=== PATIENT | male | born 1965 | race Caucasian/White ===

== ENCOUNTER 2021-04-28 19:48 | Emergency (ER) | payer OTHER, SELFPAY ==
--- NOTE | ~2021-04-28 | XR_ITS ---
EXAMINATION: XR elbow LT min 3V EXAM DATE: 04/28/2021 20:31 INDICATION: Fall, left elbow swelling and pain posteriorly. TECHNIQUE: Left elbow frontal, lateral with flexion, and oblique projections obtained and reviewed. There is no prior study for comparison. FINDINGS: Left elbow anterior humeral line intact. No elbow joint effusion. There are no acute fra ctures or dislocations identified. There is no subcutaneous gas. There is soft tissue swelling over the elbow posteriorly. There are no radiopaque foreign bodies. IMPRESSION: 1. XR elbow LT min 3V exam without acute osseous findings. 2. Soft tissue swelling. Reviewed, dictated and finalized at location G.
[2021-04-28 20:10] VITALS: BP 171/84; PULSE 85; RESP 14; TEMP 36.8; O2SAT 100
[2021-04-28 20:30] LABS: Basophils Percent Auto 0.4 % (0.2-1.2); Eosinophils Absolute Auto 0.4 K/mm3 (0-0.3); Eosinophils Percent Auto 4.1 % (0-4.4); Hematocrit 37.9 % (42.0-52.0); Hemoglobin 13.5 g/dL (14.0-18.0); Immature Granulocyte Absolute 0.02 K/mm3 (0.00-0.031); Immature Granulocyte Percent A 0.2 % (0-0.5); Lymphocytes Absolute Auto 1.96 K/mm3 (0.9-3.2); Mean Corpuscular HGB Conc 35.6 g/dl (32-36); Mean Corpuscular Hemoglobin 31.2 pg (26-34); Mean Corpuscular Volume 87.5 fl (80-100); Mean Platelet Volume 9.5 fl (7.4-10.4); Monocytes Absolute Auto 0.6 K/mm3 (0.1-0.6); Monocytes Percent Auto 7.3 % (2.6-8.5); Neutrophils Absolute Auto 5.5 K/mm3 (1.3-6.7); Platelet Count Result 271 k/mm3 (150-375); Red Blood Count 4.33 M/mm3 (4.6-6.20); Red Cell Distribution Width 12.3 % (11.5-14.5); White Blood Count 8.5 K/mm3 (4.5-10.0)
[2021-04-28 20:59] LABS: Alanine Aminotransferase 17 U/L (4-50); Albumin Level 4.1 g/dL (3.5-5.1); Alkaline Phosphatase 128 U/L (38-126); Anion Gap 8 mmol/L (8-16); Aspartate Amino Transferase 27 U/L (17-59); Bilirubin,Total 0.5 mg/dL (0.2-1.3); Blood Urea Nitrogen 24 mg/dL (9-20); Calcium 9.3 mg/dL (8.4-10.2); Carbon Dioxide 26 mmol/L (22-30); Chloride 102 mmol/L (98-107); Estimated CRCL calculation 75 ml/min; Estimated Glomerular Filt Rate > 60; Glucose 191 mg/dL (75-110); Potassium 4.7 mmol/L (3.4-5.0); Sodium 136 mmol/L (137-145)
[2021-04-28 22:04] VITALS: BP 181/90; PULSE 86; TEMP 37; O2SAT 100
[2021-04-29 00:41] VITALS: BP 165/83; PULSE 87; RESP 16; TEMP 36.5; O2SAT 100
--- NOTE | 2021-04-29 01:15 | ED.FALL ---
HPI - Fall General Chief Complaint: Fall Stated Complaint: swollen elbow Time Seen by Provider: 04/29/21 01:06 Source: patient, RN notes reviewed and old records reviewed Mode of arrival: ambulatory Limitations: no limitations History of Present Illness HPI Narrative: Patient is 55 years old white male presents with pain, and redness at the back of left elbow started about 1-1/2-day ago. Patient had a ground fall 1 week ago slipped and fell landed on the back of left elbow, had 1 cm laceration at that time. Patient was able to manage to clean it and use topical antibiotic. 1 and half days ago the area started getting swelling, red, tender and warm. Patient denies any fever, chills, nausea, vomiting. Patient is diabetic Related Data Home Medications Medication Instructions Recorded Confirmed insulin detemir U-100 [Levemir unit SUBCUT 04/29/21 FlexTouch U-100 Insuln] insulin lispro unit SUBCUT 04/29/21 metformin mg PO 04/29/21 Allergies Allergy/AdvReac Type Severity Reaction Status Date / Time No Known Allergies Allergy Unknown Verified 04/29/21 00:44 Review of Systems Review of Systems: Narrative: CONSTITUTIONAL: Denies fever, chills, or sweats. EYES: Denies visual changes, redness, or discharge. ENT: Denies rhinorrhea, congestion, sore throat, or otalgia. CARDIOVASCULAR: Denies chest pain, palpitations, or edema. RESPIRATORY: Denies cough or dyspnea. GASTROINTESTINAL: Denies abdominal pain, nausea, vomiting, or diarrhea. GENITOURINARY: Denies dysuria or hematuria. SKIN: Denies rash or itching. MUSCULOSKELETAL: Denies back pain, joint pain, or myalgia. NEUROLOGIC: Denies headache, numbness, or weakness. PSYCHIATRIC: Denies anxiety or depression. [facility] Social History Social History Smoking status: Former smoker Smoking end date: 10/25/01 Alcohol intake: current Gender identity (if verbalized by the patient): Male Exam Narrative: Exam Narrative: General appearance: Well-developed, well-nourished Skin: Normal color left upper extremity exam showed 1 cm healed laceration at the back of left elbow, surrounded by erythema, warm, diffusely tender, no discharge. Head: Normocephalic, nontraumatic Chest and respiratory: Airway patent, no respiratory distress, no accessory muscle use Heart: Regular rate/rhythm Abdomen: Soft, nontender, no organomegaly, quiet bowel sounds Vascular: Normal peripheral pulses, normal capillary refill. Musculoskeletal: Normal range of motion, nontender back Neurologic: Alert and oriented ?3, [employer] is normal as tested, no gross motor deficit Course Course Emergency Course: Stable Vital Signs Vital signs: Vital Signs Temperature 36.8 C 04/28/21 20:10 Pulse Rate 85 04/28/21 20:10 Respiratory Rate 14 04/28/21 20:10 Blood Pressure 171/84 H 04/28/21 20:10 Pulse Oximetry 100 04/28/21 20:10 Temperature 36.5 C 04/29/21 00:41 Pulse Rate 87 04/29/21 00:41 Respiratory Rate 16 04/29/21 00:41 Blood Pressure 165/83 H 04/29/21 00:41 Pulse Oximetry 100 04/29/21 00:41 MDM - Fall MDM Narrative Medical decision making narrative: Cellulitis secondary to laceration is my concern. Labs, x-ray left elbow, IV vancomycin, further plan to follow Differential Diagnosis Differential diagnosis: Likely other (Cellulitis, hyperglycemia, hypertension) Lab Data Result diagrams: 04/28/21 20:23 04/28/21 20:23 Labs: Lab Results 04/28/21 04/28/21 Range/Units 20:23 20:23 WBC 8.5 (4.5-10.0) K/mm3 RBC 4.33 L (4.6-6.20) M/mm3 Hgb 13.5 L (14.0-18.0) g/dL Hct 37.9 L (42.0-52.0) % MCV 87.5
[2021-04-29 03:10] VITALS: BP 160/80; PULSE 86; O2SAT 100
== END 2021-04-29 03:09 | disposition home or self-care (01) ==
LOC: ANHED 04-29 01:27
PROVIDERS: Emergency Medicine; Emergency Provider Emergency Medicine; PCP Family Medicine Adolescent Medicine
DX: L03.114 Cellulitis of left upper limb (principal); Z87.891 Personal history of nicotine dependence
CPT/HCPCS: 36415; 73080; 80053; 85025; 96365; 99284; J3370

== ENCOUNTER 2023-03-02 15:27 | Outpatient (CLI) | payer OTHER, SELFPAY ==
--- NOTE | ~2023-03-02 | US_ITS ---
US renal BI 03/02/2023 16:47 Procedure: Realtime transabdominal ultrasound of the kidneys and bladder. Indication: Proteinuria Comparison: No prior studies for comparison. Findings: Renal echotexture is normal bilaterally without hydronephrosis, contour deforming mass or r enal calculus. There are cysts of the left kidney. There is indeterminate exophytic left renal lesion measuring 2.6 cm. The right kidney measures 13.1 cm and left kidney measures 12.3 cm. Bladder withi n normal limits. Impression: 1: Indeterminate left renal mass measuring 2.[address] or MRI with and without contra st recommended. Reviewed, dictated and finalized at location L. Impression: 1: Indeterminate left renal mass measuring 2.[address] or MRI w ith and without contrast recommended.
== END 2023-03-02 15:28 | disposition home or self-care (01) ==
PROVIDERS: PCP Family Medicine Adolescent Medicine; Visit Provider Internal Medicine Nephrology
DX: R80.9 Proteinuria, unspecified (principal); E11.9 Type 2 diabetes mellitus without complications
CPT/HCPCS: 76775

== ENCOUNTER 2023-04-19 14:15 | Outpatient (CLI) | payer OTHER, SELFPAY ==
--- NOTE | ~2023-04-19 | CT_ITS ---
EXAMINATION: CT abdomen pelvis wo/w con DATE: 04/19/2023 14:43 INDICATION: Left kidney mass TECHNIQUE: Computed tomography (CT) of the abdomen was performed without intravenous contrast. CT of the abdomen and pelvis was then performed with a total of 100 mL Omnipaque 350 intravenous contrast. The dose-length product (DLP) was 1122.46 mGy-cm. Automated exposure control and iterative reconstruc tion technique were employed. COMPARISON: 12/15/2010 FINDINGS: Minimal dependent atelectasis is present in the lung bases. The heart size is normal. The l iver, spleen, pancreas, gallbladder, and adrenal glands are normal. There are multiple nonenhancing s oft tissue density lesions of the left kidney, consistent with proteinaceous cysts, which measure up to 2.3 cm. There is a 6 mm cyst of the right kidney. No pathologically enlarged abdominal or pelvic l ymph nodes are identified. No free intraperitoneal gas or evidence of bowel obstruction. The appendix is normal. There is calcified atherosclerosis of the aorta and many of the other arteries. IMPRESSION: 1. Nonenhancing left kidney masses, consistent with proteinaceous cysts. Reviewed, dictated and finalized at location []
[2023-04-19 14:34] LABS: Estimated Glomerular Filt Rate > 60
== END 2023-04-19 14:16 | disposition home or self-care (01) ==
PROVIDERS: PCP Family Medicine Adolescent Medicine; Visit Provider Internal Medicine Nephrology
DX: N28.89 Other specified disorders of kidney and ureter (principal)
CPT/HCPCS: 74178; Q9967

== ENCOUNTER 2023-08-27 01:03 | Day surgery (SDC) | payer OTHER, SELFPAY ==
[2023-08-16 15:11] VITALS: BMI 28.1
--- NOTE | 2023-08-26 13:41 | WPDANESEPPF ---
Anes - Initial Pre Proc Eval Procedure: Operation Date: 08/27/23 10:30 Proposed Procedures p Screening Colonoscopy - Yoseph Snyder MD Date/Time: 08/26/23 13:41 Surgeon: Yoseph Snyder MD Pre Op Diagnosis: neoplasm screening Patient Data Age: 57 Gender: M Height: 1.75 m Weight: 86.5 kg Allergies Allergy/AdvReac Type Severity Reaction Status Date / Time No Known Allergies Allergy Unknown Verified 08/27/23 09:19 Home Medications Medication Instructions Recorded Confirmed Type pen needle, diabetic 31 gauge x #300 ea 01/14/22 08/16/23 Rx 3/16 (BD Ultra-Fine Mini Pen Needle) insulin lispro 100 unit/mL 6 unit (0.06 mL) subcut .Before 12/07/22 08/16/23 Rx subcutaneous pen each meal #6 mL metformin 500 mg tablet,extended See Rx Instructions .Route 12/07/22 08/16/23 Rx release 24 hr .COMPLEX #360 tabs insulin detemir U-100 100 unit/mL 20 unit subcut QHS 01/08/23 08/16/23 History (3 mL) subcutaneous pen (Levemir FlexPen) blood sugar diagnostic (OneTouch #100 ea 02/08/23 08/16/23 Rx Verio test strips) lisinopril 5 mg tablet 5 mg PO DAILY #90 tabs 08/09/23 08/16/23 Rx Patient hx anesthesia problems: none Family hx anesthesia problems: none Results Review: All pre-operative results and documents have been reviewed as part of the pre-operative evaluation. [facility]LY [facility], [facility] Past Medical History Medical History (Updated 08/26/23 @ 13:42 by Anshul Burt DO) Cervical radiculopathy Diabetes mellitus with renal manifestation Mixed hyperlipidemia Proteinuria PTSD (post-traumatic stress disorder) Type 2 diabetes mellitus with diabetic polyneuropathy Family History Family History Mother Cerebrovascular accident Brain aneurysm Grandparent Diabetes mellitus Social History Social History Smoking status: Former smoker Tobacco type: cigarettes Smoking end date: 10/25/01 Alcohol intake: current Drinks per week: 10 Alcohol use details: Socially Substance use: current Substance use type: marijuana Other substance usage details: MJ every other day Lack of Transportation: No Lack of Food: Never True Current Housing: I Have Housing Concerned About Future Housing: No Difficulty Paying Gas/Electric Bills: No Difficulty Paying for Meds: No Currently Unemployed: No Education: Bachelor's Degree Difficulty w/ Childcare or Family Care: No Living arrangements: alone Occupation/Education: occupation Gender identity (if verbalized by the patient): Male Spiritual care concerns: No Agree to blood products: Yes Anes - Eval Final PreProcedure Day of Procedure 08/26/23 13:41 Patient weight: overweight Heart: regular rate and rhythm Lungs: clear to auscultation Airway: Mallampati scale class II Neurological: alert and oriented Last oral intake: >/= 8 hours ASA classification: III Emergent: no Anesthetic plan: proceed Anesthesia type and monitoring: general GIVS and standard monitoring Results Review: All pre-operative results and documents have been reviewed as part of the pre-operative evaluation. Informed Consent: The patient's anesthetic plan and its attendant risks and benefits were discussed with the patient/family/POA. Questions were solicited and answers provided to the satisfaction of the patient/family/POA.
[2023-08-27 09:21] VITALS: BP 178/79; PULSE 73; RESP 20; TEMP 35.8; O2SAT 100
[2023-08-27] MEDS: LACTATED RINGERS 1,000 ML 150 ML IV CONT (09:38)
[2023-08-27 09:40] LABS: Glucose Point of Care 175 mg/dl (65-105)
--- NOTE | 2023-08-27 10:01 | PM.HPGS ---
History of Present Illness History of Present Illness Consent: Risks, benefits, and alternatives have been discussed and questions answered. Patient agrees to proceed with procedure. Chief complaint: neoplasm screening Narrative: Alexandre Khan is a 57 year old male Presents for screening colonoscopy. Patient's current weight appetite and bowel movements are normal. Patient denies abdominal pain. He has had no bleeding. Family history is noncontributory. Review of Systems Review of Systems: Review of systems noncontributory. [facility] Past Medical History Medical History (Updated 08/27/23 @ 10:02 by Yoseph Snyder MD) Cervical radiculopathy Diabetes mellitus with renal manifestation Mixed hyperlipidemia Proteinuria PTSD (post-traumatic stress disorder) Type 2 diabetes mellitus with diabetic polyneuropathy Family History Family History Mother Cerebrovascular accident Brain aneurysm Grandparent Diabetes mellitus Social History Social History Smoking status: Former smoker Tobacco type: cigarettes Smoking end date: 10/25/01 Alcohol intake: current Drinks per week: 10 Alcohol use details: Socially Substance use: current Substance use type: marijuana Other substance usage details: MJ every other day Lack of Transportation: No Lack of Food: Never True Current Housing: I Have Housing Concerned About Future Housing: No Difficulty Paying Gas/Electric Bills: No Difficulty Paying for Meds: No Currently Unemployed: No Education: Bachelor's Degree Difficulty w/ Childcare or Family Care: No Living arrangements: alone Occupation/Education: occupation Gender identity (if verbalized by the patient): Male Spiritual care concerns: No Agree to blood products: Yes Meds Home Medications and Allergies Home Medications Medication Instructions Recorded Confirmed Type pen needle, diabetic 31 gauge x #300 ea 01/14/22 08/16/23 Rx 3/16 (BD Ultra-Fine Mini Pen Needle) insulin lispro 100 unit/mL 6 unit (0.06 mL) subcut .Before 12/07/22 08/16/23 Rx subcutaneous pen each meal #6 mL metformin 500 mg tablet,extended See Rx Instructions .Route 12/07/22 08/16/23 Rx release 24 hr .COMPLEX #360 tabs insulin detemir U-100 100 unit/mL 20 unit subcut QHS 01/08/23 08/16/23 History (3 mL) subcutaneous pen (Levemir FlexPen) blood sugar diagnostic (OneTouch #100 ea 02/08/23 08/16/23 Rx Verio test strips) lisinopril 5 mg tablet 5 mg PO DAILY #90 tabs 08/09/23 08/16/23 Rx Allergies Allergy/AdvReac Type Severity Reaction Status Date / Time No Known Allergies Allergy Unknown Verified 08/27/23 09:19 Vital Signs Vital Signs - 24 hr 08/27/23 09:21 Temperature 96.4 F L Pulse Rate 73 Respiratory Rate 20 Blood Pressure 178/79 H Pulse Oximetry 100 Oxygen Delivery Room Air Exam Narrative: Physical exam reveals patient to be alert. Vital signs stable. HEENT exam is unremarkable. Patient is anicteric. Lungs are clear to auscultation and percussion. Heart is without murmur or extra sounds. Abdomen bowel sounds are present soft nontender with no hepatosplenomegaly. Digital external rectal exam is normal. Assessment and Plan Assessment and plan (1) Encounter for screening colonoscopy: Code(s): Z12.11 - Encounter for screening for malignant neoplasm of colon Status: Acute Assessment and Plan: Patient presents for screening colonoscopy. He appears to be at average risk for colon polyps. Further recommendations will be given after endoscopy.
[2023-08-27 11:08] VITALS: BP 147/82; PULSE 62; RESP 21; O2SAT 98
[2023-08-27 11:18] VITALS: BP 162/91; PULSE 62; RESP 15; O2SAT 100
[2023-08-27 11:22] LABS: Glucose Point of Care 138 mg/dl (65-105)
[2023-08-27 11:28] VITALS: BP 173/104; PULSE 67; RESP 18; O2SAT 100
== END 2023-08-27 11:36 | disposition home or self-care (01) ==
PROVIDERS: PCP Family Medicine Adolescent Medicine; Visit Provider Internal Medicine Gastroenterology
PROC: 0DJD8ZZ Inspection of Lower Intestinal Tract, Via Natural or Artificial Opening Endoscopic (ICD-10-PCS; CPT 45378; principal; 2023-08-27 10:30)
DX: Z12.11 Encounter for screening for malignant neoplasm of colon (principal); K63.5 Polyp of colon; K64.8 Other hemorrhoids; E11.42 Type 2 diabetes mellitus with diabetic polyneuropathy; E78.2 Mixed hyperlipidemia; E11.29 Type 2 diabetes mellitus with other diabetic kidney complication; N28.9 Disorder of kidney and ureter, unspecified; F43.10 Post-traumatic stress disorder, unspecified; Z79.84 Long term (current) use of oral hypoglycemic drugs; Z79.4 Long term (current) use of insulin; F12.90 Cannabis use, unspecified, uncomplicated
CPT/HCPCS: 45385; 82948; 88305; J2704; J7120

== ENCOUNTER 2023-12-14 08:26 | Observation (INO) | payer OTHER, SELFPAY ==
[2023-12-14] VITALS (12 sets, daily range): BP systolic 156–228; BP diastolic 78–108; PULSE 70–95; RESP 12–19; TEMP 36.5–37.1; O2SAT 98–100
--- NOTE | ~2023-12-14 | US_ITS ---
EXAMINATION: US carotid duplex BI DATE: 12/14/2023 16:24 INDICATION: Left hemiparesis. Cerebrovascular accident. TECHNIQUE: Grayscale, color Doppler, and pulsed Doppler images of the cervical carotid arteries were obtained. The degree of vessel stenosis is placed in one of the following categories: normal, <50%, 5 0-69%, >=70% but less than near-occlusion, near-occlusion, or total occlusion. Note that percent sten osis relative to normal distal artery lumen diameter is indirectly measured from velocity measurement s as described by Gurdeep, et al. Radiology 2003; 229:340-346. COMPARISON: CTA 12/14/2023 FINDINGS: RIGHT: The right common carotid artery (CCA) peak systolic velocity (PSV) is 100 cm/s. The right internal ca rotid artery (ICA) PSV is 129 cm/s. The right ICA end-diastolic velocity (EDV) is 33 cm/s. The right ICA/CCA PSV ratio is 1.3. Grayscale and color Doppler images yield an estimate of <50% diameter reduc tion from plaque in the ICA. There is antegrade flow in the right vertebral artery. LEFT: The left CCA PSV is 91 cm/s. The left ICA PSV is 62 cm/s. The left ICA EDV is 21 cm/s. The left ICA/C CA PSV ratio is 0.7. Grayscale and color Doppler images yield an estimate of <50% diameter reduction from plaque in the ICA. There is antegrade flow in the left vertebral artery. IMPRESSION: 1. <50% stenosis in the right internal carotid artery. 2. <50% stenosis in the left internal carotid artery. Reviewed, dictated and finalized at location E. ICIAN ASSISTANT CERTIFIED
--- NOTE | ~2023-12-14 | CT_ITS ---
Non-contrast Head CT History: CVA Technique: Axial non-contrast imaging of the brain was performed. Dose reduction technique was used on this scan by utilizing automated exposure control and iterative reconstruction technique. The dose -length product (DLP) was 605.33 mGy-cm. Findings: There is no evidence of intracranial hemorrhage, mass lesion, or acute infarct. Brain par enchyma appears normal. The ventricles and subarachnoid spaces are normal in size. The calvarium ap pears normal. The visualized paranasal sinuses and mastoid air cells are clear. Impression: No significant abnormality seen. Reviewed, dictated and finalized at location . ING MACHINE OPERATOR Impression: No significant abnormality seen.
--- NOTE | ~2023-12-14 | MR_ITS ---
EXAMINATION: MR brain/brain stem wo/w con DATE: 12/14/2023 16:06 INDICATION: Stroke with left-sided facial droop and numbness and tingling of left upper extremity. TECHNIQUE: Magnetic resonance imaging (MRI) of the brain and brainstem was performed without and with 18 mL Multihance intravenous contrast. Sequences included sagittal and axial T1-weighted SE, axial d iffusion-weighted FS SE, axial 3D SWAN, axial T2-weighted FLAIR, and axial T2-weighted FSE. Postcontr ast axial and coronal T1-weighted SE was obtained. Apparent diffusion coefficient (ADC) maps were cre ated. COMPARISON: None. FINDINGS: There are no areas of restricted diffusion to suggest acute infarction. No intracranial hemorrhage or abnormal intracranial mass lesion. There are no intraparenchymal signal abnormalities seen on the ot her pulse sequences. The ventricles are symmetric and normal in size. There are no abnormal extra-axi al fluid collections. Flow voids are seen in the cerebral arteries on the T2-weighted sequences consi stent with their expected patency. Mild mucosal thickening throughout the paranasal sinuses. Visualiz ed orbits and soft tissues are unremarkable. There are no areas of abnormal enhancement on the post c ontrast images. IMPRESSION: 1. Normal brain. No acute intracranial process or abnormally enhancing brain lesions. Reviewed, dictated and finalized at location A. GER BANQUET IMPRESSION: 1. Normal brain. No acute intracranial process or abnormally enhancing brain le sions.
--- NOTE | ~2023-12-14 | XR_ITS ---
Portable chest x-ray Comparison: None Clinical History: CVA Findings: Questionable subtle 7 mm left basilar pulmonary nodule. Right lung clear. No pleural effus ion. Cardiomediastinal silhouette is stable. Bones and soft tissues are unremarkable. Impression: Questionable 7 mm left basilar pulmonary nodule. Consider follow-up CT to confirm or exclude. Reviewed, dictated and finalized at [facility]. PAINTER Impression: Questionable 7 mm left basilar pulmonary nodule. Consider follow-up CT to confi rm or exclude.
--- NOTE | ~2023-12-14 | MR_ITS ---
EXAMINATION: MR cervical spine wo con DATE: 12/14/2023 16:06 INDICATION: Left hand paresthesias. TECHNIQUE: Magnetic resonance imaging (MRI) of the cervical spine was performed without intravenous c ontrast. Sequences included sagittal T2-weighted FSE, sagittal T2-weighted FS FSE, sagittal T1-weight ed FSE, axial MERGE, and axial T2-weighted FSE. COMPARISON: None FINDINGS: Bone alignment is normal. There is mild chronic anterior wedging of T1 vertebral body. Ther e is moderately decreased disc height at C6-C7. The spinal cord signal intensity is normal. The follo wing disc levels are specifically discussed: C2-C3: The disc does not extend beyond the endplate margin. There is mild left uncovertebral joint os teoarthritis. There is mild right and severe left facet joint osteoarthritis. There is mild left neur al foraminal stenosis. There is no central canal stenosis. C3-C4: The disc does not extend beyond the endplate margin. There is mild bilateral uncovertebral vonnie nt osteoarthritis. There is moderate bilateral facet joint osteoarthritis. There is mild right neural foraminal stenosis. There is no central canal stenosis. C4-C5: There is a central protrusion. There is mild bilateral uncovertebral joint osteoarthritis. The re is moderate right and mild left facet joint osteoarthritis. There is mild right neural foraminal s tenosis. There is mild central canal stenosis. C5-C6: The disc is bulging. There is moderate bilateral uncovertebral joint osteoarthritis. There is severe right and moderate left facet joint osteoarthritis. There is mild bilateral neural foraminal s tenosis. There is mild central canal stenosis. C6-C7: The disc is bulging. There is severe right and moderate left uncovertebral joint osteoarthriti s. There is mild right and severe left facet joint osteoarthritis. There is severe right and moderate left neural foraminal stenosis. There is moderate central canal stenosis with ventral and dorsal ind entation of the spinal cord. C7-T1: The disc does not extend beyond the endplate margin. There is no uncovertebral joint osteoarth ritis. There is severe bilateral facet joint osteoarthritis. There is mild bilateral neural foraminal stenosis. There is no central canal stenosis. IMPRESSION: 1. Severe spondylosis at C6-C7 and mild spondylosis at other levels. Reviewed, dictated and finalized at location E. IZATION ENGINEER
--- NOTE | ~2023-12-14 | CT_ITS ---
EXAMINATION: CT diagnostic chest wo con DATE: 12/14/2023 16:20 INDICATION: possible pulmonary nodule on CXR, former smoker TECHNIQUE: Computed tomography (CT) of the chest was performed without intravenous contrast. Addition al 3D reconstructions utilizing coronal maximum intensity projection (MIP) were performed. Chest radi ograph dated 12/14/2023 The dose-length product was 321.25 mGy-cm. COMPARISON: Chest radiograph dated 12/14/2023 FINDINGS: Lungs are clear with no pulmonary nodules, pneumonia, pulmonary edema or pleural effusion. The nodula r opacity on the prior radiograph appears to correspond to a nipple shadow. There is mild bilateral g ynecomastia. Heart size is normal. Small amount of atherosclerotic coronary artery calcific lesion. N o pericardial effusion. Thoracic aorta is normal in caliber. Normal anatomic variant retroesophageal aberrant right subclavian artery. No pathologically enlarged thoracic lymphadenopathy. 10 mm right re nal cyst. There are some excreted contrast in the bilateral kidneys related to the prior contrast enh anced brain and carotid CT angiogram. Mild thoracic spondylosis with mild anterior wedging of a few l ower thoracic vertebral bodies. IMPRESSION: 1. No suspicious pulmonary nodules or acute cardiopulmonary disease. The nodular opacity in the prior radiograph corresponds to a nipple shadow. Reviewed, dictated and finalized at location A. ER TAILER IMPRESSION: 1. No suspicious pulmonary nodules or acute cardiopulmonary disease. The nodula r opacity in the prior radiograph corresponds to a nipple shadow.
--- NOTE | ~2023-12-14 | CT_ITS ---
CT ANGIOGRAM NECK AND HEAD History: CVA. Technique: Serial spiral axial images through the head and neck were obtained during arterial phase I V injection of 100 cc of Omnipaque 350. 3-D postprocessing and MIP images were then reconstructed on the remote workstation. Dose reduction technique was used on this scan by utilizing automated exposur e control and iterative reconstruction technique. The dose-length product (DLP) was 1202.02 mGy-cm. CTA neck findings: Bilateral vertebral are patent. Bilateral common carotid, internal carotid, and e xternal carotid arteries are patent. No large vessel occlusion. There are mild calcified plaques at t he proximal internal carotid arteries, but no stenosis. No aneurysm. The proximal right internal chacon tid artery demonstrates 0% stenosis relative to the normal distal artery lumen diameter. The proximal left internal carotid artery demonstrates 0% stenosis relative to the normal distal artery lumen kirstie meter. Aberrant right subclavian artery incidentally noted. CTA head findings: Distal vertebral arteries, basilar artery, and posterior sugars are patent. Distal internal carotid arteries, middle cerebral arteries, and anterior cerebral arteries are patent. No l arge vessel occlusion. There are probable mild stenoses in the cavernous portions of the distal inter nal carotid arteries. No aneurysm. Impression: No significant abnormality evident. Reviewed, dictated and finalized at location M. ULAR TECHNICIAN Impression: No significant abnormality evident.
--- NOTE | 2023-12-14 08:41 | ECG_ITS ---
Measurements Intervals [place] Rate: 90 P: 56 CO: 152 QRS: -3 QRSD: 85 T: 79 QT: 342 QTc: 419 Interpretive Statements SINUS RHYTHM POSSIBLE LEFT ATRIAL ENLARGEMENT [-0.1mV P WAVE IN V1/V2] NONSPECIFIC T-WAVE ABNORMALITY NO PREVIOUS ECG AVAILABLE FOR COMPARISON Electronically Signed On 12-14-2023 15:35:48 KNUCKLE BENDER by Amber Gould M.D.
[2023-12-14 08:59] LABS: Glucose Point of Care 225 mg/dl (65-105)
--- NOTE | 2023-12-14 09:12 | PC.NURSE ---
pt to CT via stretcher on tele and O2 monitor at this time
[2023-12-14 09:16] LABS: Basophils Percent Auto 0.6 % (0.2-1.2); Eosinophils Absolute Auto 0.4 K/mm3 (0-0.3); Eosinophils Percent Auto 5.5 % (0-4.4); Hematocrit 40.1 % (42.0-52.0); Hemoglobin 13.8 g/dL (14.0-18.0); Immature Granulocyte Absolute 0.01 K/mm3 (0.00-0.031); Immature Granulocyte Percent A 0.2 % (0-0.5); Lymphocytes Absolute Auto 1.74 K/mm3 (0.9-3.2); Lymphocytes Percent Auto 26.6 % (18.3-44.2); Mean Corpuscular HGB Conc 34.4 g/dl (32-36); Mean Corpuscular Hemoglobin 30.1 pg (26-34); Mean Corpuscular Volume 87.6 fl (80-100); Mean Platelet Volume 9.3 fl (7.4-10.4); Monocytes Absolute Auto 0.5 K/mm3 (0.1-0.6); Monocytes Percent Auto 7.2 % (2.6-8.5); Neutrophils Absolute Auto 3.9 K/mm3 (1.3-6.7); Neutrophils Percent Auto 59.9 % (45.5-73.1); Platelet Count Result 277 k/mm3 (150-375); Red Blood Count 4.58 M/mm3 (4.6-6.20); Red Cell Distribution Width 12.1 % (11.5-14.5); White Blood Count 6.5 K/mm3 (4.5-10.0)
[2023-12-14 09:24] LABS: INR 0.9; Prothrombin Time 12.3 Seconds (11.1-14.7)
[2023-12-14 09:25] LABS: Partial Thromboplastin Time 26.9 SECONDS (22.3-36.8)
[2023-12-14 09:30] LABS: Alanine Aminotransferase 21 U/L (6-50); Alkaline Phosphatase 87 U/L (38-126); Anion Gap 6 mmol/L (8-16); Aspartate Amino Transferase 30 U/L (17-59); Bilirubin,Total 0.8 mg/dL (0.2-1.3); Blood Urea Nitrogen 33 mg/dL (9-20); Calcium 9.3 mg/dL (8.4-10.2); Carbon Dioxide 25 mmol/L (22-30); Chloride 106 mmol/L (98-107); Estimated CRCL calculation 72 ml/min; Estimated Glomerular Filt Rate > 60; Glucose 215 mg/dL (65-110); Potassium 4.3 mmol/L (3.4-5.0); Sodium 137 mmol/L (137-145)
[2023-12-14 09:42] LABS: Troponin I < 0.012 ng/mL (0.000-0.034)
[2023-12-14] MEDS: ASPIRIN 325 MG TABLET PO (09:43)
--- NOTE | 2023-12-14 09:44 | PC.NURSE ---
Pt to CT via stretcher on tele and O2 monitor at this time
--- NOTE | 2023-12-14 11:26 | ED.NEUROSD ---
HPI - Neuro Symptoms/Deficit General Chief Complaint: Neuro Symptoms/Deficit Stated Complaint: numbeness tingling Time Seen by Provider: 12/14/23 08:40 Source: patient Mode of arrival: ambulatory Limitations: no limitations History of Present Illness HPI Narrative: 58-year-old with a history of hypertension, diabetes on insulin therapy here with a complaint of on and off left-sided facial numbness and left arm tingling. Patient states that he saw his primary doctor and was scheduled for outpatient MRI however this morning when he woke up at around 8:30 a.m. he noticed his left side of his face was drooping. Denies having any headache, stated that his speech was little abnormal and also his 3rd 4th 5th fingers on the left side were numb and tingly. Denies any motor weakness in his lower extremities. No previous history of CVA or TIA. Onset (ago): day(s) (1) Location: left face Severity: moderate Relieving factors: none Exacerbating factors: none Context: gradual onset Associated symptoms: denies other symptoms Related Data Allergies Allergy/AdvReac Type Severity Reaction Status Date / Time No Known Allergies Allergy Unknown Verified 12/14/23 08:38 Review of Systems Review of Systems: All systems reviewed & are unremarkable except as noted in HPI and below Constitutional: Constitutional: Reports no additional constitutional complaints Eyes: Eyes: Reports no additional eye complaints ENT: Reports system reviewed and no additional complaints, except as documented Cardiovascular: Cardiovascular: Reports no additional cardiovascular complaints Respiratory: Respiratory: Reports no additional respiratory complaints Gastrointestinal: Gastrointestinal: Reports no additional gastrointestinal complaints Musculoskeletal: Musculoskeletal: Reports no additional musculoskeletal complaints Neurologic: Reports as per HPI Psychiatric: Psychiatric: Reports no additional psychiatric complaints Endocrine: Endocrine: Reports no additional endocrine complaints [facility] Past Medical History Medical History Cervical radiculopathy Diabetes mellitus with renal manifestation Mixed hyperlipidemia Proteinuria PTSD (post-traumatic stress disorder) Type 2 diabetes mellitus with diabetic polyneuropathy Family History Family History Mother Cerebrovascular accident Brain aneurysm Grandparent Diabetes mellitus Social History Social History Smoking status: Former smoker Tobacco type: cigarettes Smoking end date: 10/25/01 Alcohol intake: current Drinks per week: 10 Alcohol use details: Socially Substance use: current Substance use type: marijuana Other substance usage details: MJ every other day Lack of Transportation: No Lack of Food: Never True Current Housing: I Have Housing Concerned About Future Housing: No Difficulty Paying Gas/Electric Bills: No Difficulty Paying for Meds: No Currently Unemployed: No Education: Bachelor's Degree Difficulty w/ Childcare or Family Care: No Living arrangements: alone Occupation/Education: occupation Gender identity (if verbalized by the patient): Male Spiritual care concerns: No Agree to blood products: Yes Exam Narrative: GENERAL: Well-appearing, well-nourished, and in no acute distress. HEAD: Normocephalic, atraumatic. EYES: PERRLA and EOMI. ENT: Nares clear, no rhinorrhea or epistaxis. Has a left-sided facial NECK: Supple. CHEST: Clear to auscultation. No respiratory distress. HEART: Regular rate and rhythm. No murmur heard. Normal peripheral pulses. ABDOMEN: Soft, nontender, nondistended, normal active bowel sounds. EXTREMITIES: Normal range of motion. No edema. SKIN: Warm, dry, no rash. NEURO: Left facial. Alert and oriented x3. PSYCH: Normal mood and affect. Course Cou
[2023-12-14 12:11] LABS: Glucose Point of Care 124 mg/dl (65-105)
--- NOTE | 2023-12-14 13:17 | PC.NURSE ---
This patient, Alexandre A Major, was admitted to 3 [facility] Surg Room 319-01. Patient/family oriented to hospital policies and general routines including ID bracelet, bed and alarms, visiting hours, pain management, procedures, bathroom and other care routines, personal items, smoking policy, room service/diet, and visiting hours. Information on how to activate the Rapid Response Team has been discussed. Patient/Family are encouraged to report perceived risks to care and to ask questions if they do not understand what they are told or what they should do.
[2023-12-14 13:32] LABS: Glucose Point of Care 98 mg/dl (65-105)
--- NOTE | 2023-12-14 13:52 | PM.IMHP ---
H&P: HPI History of Present Illness Date/Time: 12/14/23 13:30 Chief Complaint: Left face drooping. Narrative: This is a very pleasant 58-year-old male with hypertension, insulin dependent diabetes mellitus, proteinuria, and posttraumatic stress disorder who presented to the emergency department via private vehicle for evaluation of left face drooping. The patient provides the following history. Nearly 2 weeks ago he developed fairly sudden onset of paresthesia on the left side of his lips and in the left hand and fingers. The paresthesias seems to come and go for several days though it has largely been persistent. He saw Dr. Bradford a week after the symptoms started and he ordered a brain MRI which was scheduled for this morning. The patient has otherwise been in his usual state of health and reports being the same when he went to bed last night. This morning while getting ready he noticed that the left side of his face seemed to be drooping and came in for evaluation. He denies vertigo, visual changes, difficulty speaking and swallowing, focal weakness, and changes in the paresthesias in his left hand and fingers. 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 Of note, the several days to week before he developed the paresthesias in the lips and hand, he spent 3 to 4 hours at the dentist having a root canal. He did not have any immediate issues thereafter. He denies palpitations, sensations of racing heart, or feelings of irregular heartbeat. He has not had any recent falls or injuries. He reports that his blood pressures are usually well controlled however they are always elevated at the dentist due to anxiety. When he was at Dr. Bradford's office they were reportedly within normal limits. He is compliant with his home medications. He believes his diabetes is pretty well controlled and hemoglobin A1c last summer was 6.4%. In the ED: Blood pressure was as high as 228/108. Brain CT and CTA of the head and neck showed no significant abnormalities. EKG showed normal sinus rhythm. He is being admitted in this setting for close monitoring, brain MRI, and neurology consultation. Review of Systems Review of Systems: Twelve systems were reviewed and are negative except for as per HPI. [facility] Past Medical History Medical History (Updated 12/14/23 @ 15:01 by Gabriela Joyner PA-C) Cervical radiculopathy Diabetes mellitus with renal manifestation Hypertension Mixed hyperlipidemia Posttraumatic stress disorder Proteinuria Type 2 diabetes mellitus with diabetic polyneuropathy Family History Family History Mother Cerebrovascular accident Brain aneurysm Grandparent Diabetes mellitus Social History Social History (Updated 12/14/23 @ 14:59 by Gabriela Joyner PA-C) Social History: Surrogate medical decision maker: Floresita Khan, sibling. Code status: Full code. Smoking status: Former smoker Tobacco type: cigarettes Smoking end date: 10/25/01 Alcohol intake: current Drinks per week: 6 Alcohol use details: Socially Substance use: current Substance use type: marijuana Other substance usage details: Medical marijuana for PTSD. Last use: 12/12/23 Do You Feel Safe in your Home?: Yes Lack of Transportation: No Lack of Food: Never True Current Housing: I Have Housing Concerned About Future Housing: No Difficulty Paying Gas/Electric Bills: No Difficulty Paying for Meds: No Currently Unemployed: No Education: Decline to Answer Difficulty w/ Childcare or Family Care: No Living arrangements: alone Spiritual care concerns: No Agree to blood products: Yes Meds Home Medications and Allergies Home Medications Medication Instructions Recorded Confirmed Type pen needle, diabetic 31 gauge x #300 ea 01/14/22 12/14/23 Rx 16 (BD Ultra-Fine Mini Pen Needl
[2023-12-14] MEDS: hydrALAZINE HCL 20 MG/ML VIAL 10 MG IV PUSH (20:34)
[2023-12-14 20:40] LABS: Glucose Point of Care 153 mg/dl (65-105)
[2023-12-14] MEDS: SALINE 0.65% NAS SOLN 44 ML BTL 1 SPRAY NASAL (22:29)
[2023-12-15] VITALS (7 sets, daily range): BP systolic 160–197; BP diastolic 73–93; PULSE 80–104; RESP 14–18; TEMP 36.3–37.1; O2SAT 98–100
--- NOTE | 2023-12-15 | ECHO_ITS ---
Patient Info Name: Alexandre Khan Age: 58 years : 1965 Gender: Male Ht: 69 in Wt: 195 lbs BSA: 2.10 m2 HR: 80 bpm BP: 169 / 76 mmHg Heart Rhythm: Tachycardia Technical Quality: Good Exam Date: 12/15/2023 9:08 AM Exam Location: Echo Lab Patient Status: Inpatient Admit Date: 12/14/2023 Staff Ordering Physician: Enrique Vega MD Vp Celebrity Services: Caroline Gallardo RDCS Attending Provider: Esa Draper MD Exam Type: CA echo doppler w bubble study Study Info Indications - CVA Complete two-dimensional, color flow and Doppler transthoracic echocardiogram is performed with agitated saline. Contrast/Agitated Saline Contrast/Ag. Saline: Agitated Saline Amount: --- ml Summary 1. Left ventricular chamber dimension is normal. 2. Left ventricular systolic function is hyperdynamic, estimated at >70%. 3. There is mildly increased left ventricular wall thickness. 4. The left ventricular diastolic function is grade I diastolic dysfunction. 5. No evidence for ifbbt-ii-lbuq shunt with injection of agitated saline with and without Valsalva. Recommendations * Consider transesophageal echocardiogram if clinically indicated. Left Ventricle Left ventricular chamber dimension is normal. Left ventricular systolic function is hyperdynamic, estimated at >70%. There is mildly increased left ventricular wall thickness. The left ventricular diastolic function is grade I diastolic dysfunction. Right Ventricle Right ventricular chamber dimension is normal. Right ventricular systolic function is normal. Left Atria Left atrial chamber dimension is normal. Right Atria Right atrial chamber dimension is normal. Atrial Septum No evidence for daiqs-ae-aagb shunt with injection of agitated saline with and without Valsalva. Aortic Valve The aortic valve is not well visualized. There is no aortic valve stenosis. There is no aortic valve regurgitation. Pulmonic Valve The pulmonic valve is not well visualized. Mitral Valve The mitral valve has normal leaflets. There is trace mitral valve regurgitation. Tricuspid Valve The tricuspid valve leaflets are normal. There is trace tricuspid valve regurgitation. No pulmonary hypertension, estimated pulmonary arterial systolic pressure is 14 mmHg. Pericardium/Pleural The pericardium appears normal. There is no pericardial effusion. Inferior Vena Cava Normal inferior vena cava with >50% collapse upon inspiration consistent with normal right atrial pressure, 5 mmHg. Aorta The aortic root size at the sinus of Valsalva is normal. Left Ventricular Outflow Tract Name Value Normal LVOT 2D LVOT Diameter 2.0 cm LVOT Doppler LVOT Peak Gradient 5 mmHg LVOT Mean Gradient 3 mmHg LVOT VTI 30 cm LVOT VTI/AV VTI Ratio 1.2 LVOT Stroke Volume 97 ml LVOT CO 8.8 l/min LVOT CI 4.2 l/min/m2 Pulmonic Valve Name Value
[2023-12-15 03:35] LABS: Glucose Point of Care 141 mg/dl (65-105)
[2023-12-15] MEDS: ACETAMINOPHEN 325 MG TABLET 650 MG PO (04:07)
[2023-12-15] MEDS: hydrALAZINE HCL 20 MG/ML VIAL 10 MG IV PUSH ×2 (04:08→12:32)
[2023-12-15 06:58] LABS: Anion Gap 4 mmol/L (8-16); Blood Urea Nitrogen 23 mg/dL (9-20); Calcium 9.1 mg/dL (8.4-10.2); Carbon Dioxide 27 mmol/L (22-30); Chloride 103 mmol/L (98-107); Cholesterol 253 mg/dL (0-200); Estimated CRCL calculation 100 ml/min; Estimated Glomerular Filt Rate > 60; Glucose 170 mg/dL (65-110); HDL Direct 32 mg/dL; Sodium 134 mmol/L (137-145); Triglycerides 207 mg/dL (<150)
[2023-12-15 07:09] LABS: LDL Cholesterol Direct 186 mg/dL
[2023-12-15 07:46] LABS: Glucose Point of Care 163 mg/dl (65-105)
[2023-12-15] MEDS: lisinopriL 5 MG TABLET PO (07:59)
[2023-12-15] MEDS: TRIAMCINOLONE ACET 0.1% CREAM 15 GM TUBE 1 APPLIC TOPICAL (07:59)
[2023-12-15] MEDS: ASPIRIN 81 MG CHEWABLE TABLET PO (08:00)
[2023-12-15] MEDS: INSULIN GLARGINE (*BKC) 100 UNITS/ML 20 UNITS SUB-Q (08:01)
[2023-12-15] MEDS: INSULIN ASPART (*BKC) 100 UNITS/ML 6 UNITS SUB-Q ×2 (08:02→11:41)
[2023-12-15 11:24] LABS: Glucose Point of Care 183 mg/dl (65-105)
--- NOTE | 2023-12-15 12:31 | WPDNEURCNPN ---
Assessment and Plan Assessment and plan (1) Insulin dependent type 2 diabetes mellitus: Code(s): E11.9 - Type 2 diabetes mellitus without complications; Z79.4 - intermediate (current) use of insulin Status: Acute (2) Cervical stenosis of spinal canal: Code(s): M48.02 - Spinal stenosis, cervical region Status: Acute (3) Diabetic neuropathy: Code(s): E11.40 - Type 2 diabetes mellitus with diabetic neuropathy, unspecified Status: Acute Plan 1 cervical spondylosis with moderate cervical central canal stenosis the level of C6 and 7 in addition to the foraminal stenosis as well because of spondylosis. 2. Diabetic neuropathy 3. Normal MRI of the brain with normal CTA of the head and neck. Will benefit from the EMG and nerve conduction study and also referral to the neurosurgical service and while here echocardiogram is being done anyhow. Consult date: 12/15/23 HPI: Alexandre Khan is a 58 year old male Admitted to the hospital through the emergency room with ongoing history of 1. Hypertension 2. Insulin-dependent diabetes mellitus but with new complaints of off and on left-sided facial numbness and tingling sensation of the left upper extremity he reported that he woke up around 8:30 a.m. when the left side of his face was drooping as well he gave no history of associated headache or speech difficulties. He is not allergic to any medication he does have ongoing history of cervical radiculopathy in the past in addition to posttraumatic stress disorder. He is a former smoker currently drinks 10 drinks per week initial exam in the emergency room was grossly nonfocal CTA head and CTA were negative with NIH score of 2 thus tPA was not given, his vital signs were abnormal with blood pressure 211/86, normal CBC, BMP with blood sugar of 215 and BUN of 33 routine lab negative, stat x-ray with questionable left basilar pulmonary nodule, negative CT scan of the head. Patient is regularly followed by Dr. Bradford Elvira had developed sudden onset of paresthesia on the left side of his lips and the left hand and fingers about 2 weeks ago when an MRI of the brain was ordered as an outpatient by Dr. 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 His new MRI of the brain is negative, MRI of cervical spine documents severe spondylosis at C6 and 7 with moderate central canal stenosis and ventral and dorsal indentation of the spinal cord. Review of Systems Review of Systems: All systems reviewed & are unremarkable except as noted in HPI and below PMFSH Past Medical History Medical History (Updated 12/15/23 @ 12:46 by Robert Jessica MD) Cervical radiculopathy Diabetes mellitus with renal manifestation Hypertension Mixed hyperlipidemia Posttraumatic stress disorder Proteinuria Type 2 diabetes mellitus with diabetic polyneuropathy Family History Family History Mother Cerebrovascular accident Brain aneurysm Grandparent Diabetes mellitus Social History Social History (Updated 12/14/23 @ 14:59 by Gabriela Joyner PA-C) Social History: Surrogate medical decision maker: Floresita Khan, sibling. Code status: Full code. Smoking status: Former smoker Tobacco type: cigarettes Smoking end date: 10/25/01 Alcohol intake: current Drinks per week: 6 Alcohol use details: Socially Substance use: current Substance use type: marijuana Other substance usage details: Medical marijuana for PTSD. Last use: 12/12/23 Do You Feel Safe in your Home?: Yes Lack of Transportation: No Lack of Food: Never True Current Housing: I Have Housing Concerned About Future Housing: No Difficulty Paying Gas/Electric Bills: No Difficulty Paying for Meds: No Currently Unemployed: No Education: Decline to Answer Difficulty w/ Childcare
--- NOTE | 2023-12-15 13:30 | PM.DS ---
DS: Admitting Diagnosis Discharge Date 12/15/2023 Admitting Diagnosis Left face drooping. DS: Discharge Diagnosis Discharge Diagnosis (1) Facial droop: Code(s): R29.810 - Facial weakness Status: Acute (2) Paresthesias in left hand: Code(s): R20.2 - Paresthesia of skin Status: Acute (3) Abnormal chest x-ray: Code(s): R93.89 - Abnormal findings on diagnostic imaging of other specified body structures Status: Acute (4) Hypertension: Code(s): I10 - Essential (primary) hypertension Status: Acute (5) Insulin dependent type 2 diabetes mellitus: Code(s): E11.9 - Type 2 diabetes mellitus without complications; Z79.4 - technician terminal and repeater (current) use of insulin Status: Acute Plan The patient presented to the emergency department for evaluation of left-sided facial droop noted this morning while getting ready as per HPI. Last known normal was sometime last evening before retiring to bed. He is paresthesias the left side of his lips and well. Labs, imaging, EKG, and all reports were personally reviewed. CT of the brain and CTA of the head and neck were both without significant findings. Brain and cervical spine MRI have been ordered for further evaluation as the symptoms very well be due to cervical radiculopathy however that does not explain sensory changes on the left side of his lips or left mouth droop. He did spend upwards of 4 hours in the dental chair having a root canal done within the last week or 2 and I suppose the symptoms could be related to the procedure (facial nerve palsy) though it was a delayed onset. Consider early Hopkins palsy as well though that seems less likely. Continue aspirin 81 mg daily. Check fasting lipids in a.m.. Echocardiogram ordered. Neurology has been consulted and their input is appreciated. Chest x-ray shows questionable left basilar pulmonary nodule and given his smoking history a chest CT has been ordered. Pt had CT head and neck and MRi brain and Echo completed in hospital. DS: Summary Hospital Course Hospital Course: As per neurology team - Patient is regularly followed by Dr. Bradford Elvira had developed sudden onset of paresthesia on the left side of his lips and the left hand and fingers about 2 weeks ago when an MRI of the brain was ordered as an outpatient by Dr. 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 His new MRI of the brain is negative, MRI of cervical spine documents severe spondylosis at C6 and 7 with moderate central canal stenosis and ventral and dorsal indentation of the spinal cord. Plan to follow up with Neurology clinic. for severe spondylosis at C6 and 7 with moderate central canal stenosis and ventral and dorsal indentation of the spinal cord. Pt dc with gabapentin at night to help symptoms. Time Spent with Patient Time attestation: Total time spent providing and/or coordinating discharge services:45 minutes on day of DC Exam Narrative: General: Well-developed male sitting up in bed in no acute distress. Neck: Supple. No carotid bruits. No midline vertebral tenderness. Respiratory: Lungs are clear to auscultation bilaterally. Cardiovascular: Regular rate and rhythm with S1-S2. Gastrointestinal: Abdomen is soft, nontender, and nondistended with positive bowel sounds. Skin: Warm and dry. No rash or lesions on limited exam. Extremities: No cyanosis, clubbing, or edema. Radial and pedal pulses intact. Neurological: Alert and oriented. Cranial nerves 2-12 are grossly intact. Speech is clear. Mild drooping of the left side of the face. No pronator drift. Normal [id number]-[id number], rapid alternating movements, and heel to muhammad. Strength 5/5 throughout. Normal shoulder shrug. Subjective blunted sensation on the dorsum of the left hand. Psychiatric: Pleasant and cooperative with normal mood and affect. Judg
== END 2023-12-15 16:40 | disposition home or self-care (01) ==
LOC: ANHED 11:36 → ANH3MEDSUR 16:20
PROVIDERS: Admitting Provider Internal Medicine; Emergency Provider Family Medicine; PCP Family Medicine Adolescent Medicine; Visit Provider Family Medicine
DX: R29.810 Facial weakness (principal); R20.2 Paresthesia of skin; R93.89 Abnormal findings on diagnostic imaging of other specified body structures; I11.9 Hypertensive heart disease without heart failure; E11.29 Type 2 diabetes mellitus with other diabetic kidney complication; E11.42 Type 2 diabetes mellitus with diabetic polyneuropathy; M47.22 Other spondylosis with radiculopathy, cervical region; M47.23 Other spondylosis with radiculopathy, cervicothoracic region; I65.23 Occlusion and stenosis of bilateral carotid arteries; R80.9 Proteinuria, unspecified; E78.2 Mixed hyperlipidemia; F43.10 Post-traumatic stress disorder, unspecified; Z87.891 Personal history of nicotine dependence; F10.90 Alcohol use, unspecified, uncomplicated; F12.90 Cannabis use, unspecified, uncomplicated; Z79.4 Long term (current) use of insulin; Z79.84 Long term (current) use of oral hypoglycemic drugs; Z79.52 Long term (current) use of systemic steroids; Z79.899 Other long term (current) drug therapy
CPT/HCPCS: 36415; 70450; 70496; 70498; 70553; 71045; 71250; 72141; 80048; 80053; 80061; 82607; 82948; 84484; 85025; 85610; 85730; 93005; 93306; 93880; 96374; 96375; 96376; 99285; A9270; A9577; G0378; G0379; J0360; J1815; Q9967

== ENCOUNTER 2024-01-13 21:46 | Emergency (ER) | payer OTHER, SELFPAY ==
--- NOTE | ~2024-01-13 | XR_ITS ---
EXAMINATION: XR chest 1V portable INDICATION: Hypertension TECHNIQUE: Portable AP chest at 2326 hours COMPARISON: 12/14/2023 FINDINGS: The lungs are free of acute opacities. No pleural effusion or pneumothorax. The cardiomedia stinal silhouette is normal. IMPRESSION: 1. No acute cardiopulmonary abnormality. Reviewed, dictated and finalized at location F.
[2024-01-13 21:49] VITALS: BP 222/94; PULSE 74; RESP 14; TEMP 35.9; O2SAT 100
--- NOTE | 2024-01-13 22:38 | ECG_ITS ---
Measurements Intervals [place] Rate: 65 P: 34 DC: 160 QRS: -17 QRSD: 90 T: 62 QT: 371 QTc: 387 Interpretive Statements SINUS RHYTHM DELAYED PRECORDIAL R/S TRANSITION BASELINE ARTIFACT- V4, V6 BORDERLINE ECG COMPARED TO ECG 12/14/2023 08:48:45 NO SIGNIFICANT CHANGES Electronically Signed On 01-14-2024 6:37:21 CDT by Collins Brian D.O.
[2024-01-13 23:00] VITALS: BP 220/93; PULSE 65; RESP 15; O2SAT 99
[2024-01-13 23:16] VITALS: BP 194/89; PULSE 63; RESP 18; O2SAT 98
[2024-01-13 23:17] LABS: Basophils Absolute Auto 0.1 K/mm3 (0.0-0.1); Basophils Percent Auto 0.7 % (0.2-1.2); Eosinophils Absolute Auto 0.4 K/mm3 (0-0.3); Eosinophils Percent Auto 5.2 % (0-4.4); Hematocrit 38.2 % (42.0-52.0); Immature Granulocyte Absolute 0.02 K/mm3 (0.00-0.031); Immature Granulocyte Percent A 0.2 % (0-0.5); Lymphocytes Absolute Auto 2.16 K/mm3 (0.9-3.2); Lymphocytes Percent Auto 26.9 % (18.3-44.2); Mean Corpuscular Hemoglobin 30.4 pg (26-34); Mean Corpuscular Volume 89.3 fl (80-100); Mean Platelet Volume 9.9 fl (7.4-10.4); Monocytes Absolute Auto 0.6 K/mm3 (0.1-0.6); Monocytes Percent Auto 7.7 % (2.6-8.5); Neutrophils Absolute Auto 4.8 K/mm3 (1.3-6.7); Neutrophils Percent Auto 59.3 % (45.5-73.1); Platelet Count Result 269 k/mm3 (150-375); Red Blood Count 4.28 M/mm3 (4.6-6.20)
[2024-01-13 23:29] LABS: INR 0.9; Partial Thromboplastin Time 29.7 Seconds (22.3-36.8); Prothrombin Time 12.6 Seconds (11.1-14.7)
[2024-01-13 23:31] LABS: Alanine Aminotransferase 20 U/L (6-50); Albumin Level 3.8 g/dL (3.5-5.1); Alkaline Phosphatase 104 U/L (38-126); Anion Gap 3 mmol/L (8-16); Aspartate Amino Transferase 28 U/L (17-59); Bilirubin,Total 0.5 mg/dL (0.2-1.3); Blood Urea Nitrogen 26 mg/dL (9-20); Calcium 9.1 mg/dL (8.4-10.2); Carbon Dioxide 27 mmol/L (22-30); Chloride 105 mmol/L (98-107); Estimated CRCL calculation 89 ml/min; Estimated Glomerular Filt Rate > 60; Glucose 119 mg/dL (65-110); Lipase 331 U/L (23-300); Potassium 4.6 mmol/L (3.4-5.0); Sodium 135 mmol/L (137-145)
--- NOTE | 2024-01-13 23:38 | ED.GENADULT ---
HPI - General Adult General Chief complaint: Unspecified Stated complaint: HIGH BLOOD PRESSURE Time Seen by Provider: 01/13/24 23:16 History of Present Illness HPI narrative: This is a 58-year-old male presenting for asymptomatic hypertension. Patient was recently hospitalized for paresthesias. That time was diagnosed with hypertension. He has been placed on 10 mg lisinopril. He has been checked his blood pressure at home and noticed it usually runs 170/100. Today it was even higher the 200s. Patient is asymptomatic without chest pain difficulty breathing or new neurologic symptoms. He still has some residual left hand tingling and left lip tingling from his paresthesias when ago. Patient has close follow-up with primary care physician Related Data Home Medications Medication Instructions Recorded Confirmed insulin detemir U-100 100 unit/mL 20 unit subcut DAILY 12/14/23 12/14/23 (3 mL) subcutaneous pen (Levemir FlexPen) metformin 500 mg tablet,extended 2,000 mg PO DAILY 12/14/23 12/14/23 release 24 hr Allergies Allergy/AdvReac Type Severity Reaction Status Date / Time No Known Allergies Allergy Unknown Verified 12/27/23 14:19 [facility] Past Medical History Medical History Cervical radiculopathy Diabetes mellitus with renal manifestation Hypertension Mixed hyperlipidemia Posttraumatic stress disorder Proteinuria Type 2 diabetes mellitus with diabetic polyneuropathy Family History Family History Mother Cerebrovascular accident Brain aneurysm Grandparent Diabetes mellitus Social History Social History Social History: Surrogate medical decision maker: Floresita Khan, sibling. Code status: Full code. Smoking status: Former smoker Tobacco type: cigarettes Smoking end date: 10/25/01 Alcohol intake: current Drinks per week: 6 Alcohol use details: Socially Substance use: current Substance use type: marijuana Other substance usage details: Medical marijuana for PTSD. Last use: 12/12/23 Do You Feel Safe in your Home?: Yes Lack of Transportation: No Lack of Food: Never True Current Housing: I Have Housing Concerned About Future Housing: No Difficulty Paying Gas/Electric Bills: No Difficulty Paying for Meds: No Currently Unemployed: No Education: Decline to Answer Difficulty w/ Childcare or Family Care: No Living arrangements: alone Spiritual care concerns: No Agree to blood products: Yes Exam Narrative: APPEARANCE: No apparent distress. Head: atraumatic. EYES: EOMI, NOSE: Atraumatic NECK: Trachea midline RESPIRATORY: No increased rate of breathing clear to auscultation CARDIOVASCULAR: RRR, no peripheral edema ABDOMINAL: Non-distended MUSCULOSKELETAl: No obvious deformities NEURO: Alert. Cranial nerves 2-12 grossly intact. Sensation light touch, motor function cerebellar function intact for 4 extremities. Gait exam was normal. SKIN:: Warm, dry. Normal color PSYCHIATRIC: Normal affect Course Vital Signs Vital signs: Vital Signs Temperature 96.7 F L 01/13/24 21:49 Pulse Rate 74 01/13/24 21:49 Respiratory Rate 14 01/13/24 21:49 Blood Pressure 222/94 H 01/13/24 21:49 Pulse Oximetry 100 01/13/24 21:49 Oxygen Delivery Room Air 01/13/24 21:49 Temperature 96.7 F L 01/13/24 21:49 Pulse Rate 65 01/13/24 23:00 Respiratory Rate 15 01/13/24 23:00 Blood Pressure 220/93 H 01/13/24 23:00 Pulse Oximetry 99 01/13/24 23:00 Oxygen Delivery Room Air 01/13/24 21:49 Medical Decision Making MDM Narrative Medical decision making narrative: -Course: 58-year-old male presenting with asymptomatic hypertension. Patient has close follow-up with his primary care physician. Will be discharged. -DDX includes but is not limited to: asymptomatic hyper
[2024-01-13 23:42] LABS: Troponin I < 0.012 ng/mL (0.000-0.034)
[2024-01-13 23:45] VITALS: BP 192/92; PULSE 67; RESP 15
== END 2024-01-13 23:58 | disposition home or self-care (01) ==
LOC: ANHED 23:47
PROVIDERS: Emergency Provider Emergency Medicine; PCP Family Medicine Adolescent Medicine
DX: I10 Essential (primary) hypertension (principal); E11.29 Type 2 diabetes mellitus with other diabetic kidney complication; N28.9 Disorder of kidney and ureter, unspecified; E11.42 Type 2 diabetes mellitus with diabetic polyneuropathy; E78.2 Mixed hyperlipidemia; Z87.891 Personal history of nicotine dependence; Z79.4 Long term (current) use of insulin; Z79.84 Long term (current) use of oral hypoglycemic drugs; R94.31 Abnormal electrocardiogram [ECG] [EKG]
CPT/HCPCS: 36415; 71045; 80053; 83690; 84484; 85025; 85610; 85730; 93005; 99284

== ENCOUNTER 2024-01-31 09:46 | Outpatient (CLI) | payer OTHER, SELFPAY ==
--- NOTE | 2024-01-28 09:03 | PC.NURSE ---
Pre Radiology instructions Report to the outpatient [facility] on date 829 at time 01/31/24 for procedure Time: 1030. YOU MAY BE MONITORED AT HOSPITAL FOR UP TO 4 HOURS AFTER YOUR PROCEDURE. A visitor will be allowed to accompany the patient into the hospital. You and your visitor will be asked to self-screen and do not enter if you have any COVID symptoms. A mask is OPTIONAL within the hospital. Patients are to have no food or drink 6 hours prior to procedure time Driving will be restricted after the procedure, you must have a person to drive you home. Labs will be drawn in preop area and once reviewed, you will be taken to radiology area for procedure. When the procedure is completed, you will be taken to outpatient where you will be monitored for several hours. You may have one visitor in this area. Other than holding anti-coagulants, patient may take other medication(s) as scheduled. Prior to your appointment date patients are instructed to hold anti-coagulants after discussing with ordering provider to stop. If unable to discontinue anti-coagulants please notify radiologist. ? No aspirin or warfarin (Coumadin) for 7 days prior to the procedure. ? No clopidogrel (Plavix), ticagrelor (Brilinta), prasugrel (Effient) or dabigatran (Pradaxa) for 5 days prior to the procedure. ? No rivaroxaban (Xarelto), apixaban (Eliquis), dipyridamole (Aggrenox or Persantine) or cilostazol (Pletal) for 2 days prior to the procedure. Medications to discontinue per physician: ASPIRIN Date to take last dose: PT STATES LAST DOSE WAS TUESDAY 01/23 Please leave all valuables, including medications, at home the day of procedure. The hospital will not accept responsibility for valuables. Wear comfortable, loose fitting clothing.? Follow any additional instructions given to you from ordering provider. Telephone instructions given to PT - GÓMEZ and asked if any additional questions and then verbalized understanding. Patient advised to call scheduling provider office or registration scheduling [phone] if any additional questions.
[2024-01-28 09:05] VITALS: BMI 29.2
[2024-01-31] VITALS (8 sets, daily range): BP systolic 114–133; BP diastolic 61–74; PULSE 57–66; RESP 16–18
--- NOTE | ~2024-01-31 | US_ITS ---
EXAMINATION: US biopsy renal DATE: 01/31/2024 11:29 INDICATION: Nephrotic range proteinuria. TECHNIQUE: The procedure including the risks, benefits, and alternatives was discussed with the patie nt. Risks discussed included bleeding and infection. The patient understood the risks and agreed to p roceed. A timeout was performed to verify the patient's name, date of , and procedure to be p erformed. The skin overlying the left kidney was prepped and draped in usual sterile fashion. Anest hetic was administered with 1% lidocaine subcutaneously. An 18 gauge core biopsy needle was then use d to obtain 4 core biopsy specimens under continuous sonographic guidance. The entry site was cleaned and dressed. There were no immediate complications. FINDINGS: Ultrasound images demonstrate the needle in the kidney. IMPRESSION: 1. Ultrasound-guided random left kidney core needle biopsy. Reviewed, dictated and finalized at location A.
[2024-01-31 12:42] LABS: Glucose Point of Care 164 mg/dl (65-105)
== END 2024-01-31 15:30 | disposition home or self-care (01) ==
PROVIDERS: PCP Family Medicine Adolescent Medicine; Referring Provider Internal Medicine Nephrology; Visit Provider Radiology Diagnostic Radiology
PROC: (CPT 76942; principal; 2024-01-31 10:30)
DX: R80.9 Proteinuria, unspecified (principal); E11.29 Type 2 diabetes mellitus with other diabetic kidney complication
CPT/HCPCS: 50200; 76942; 82948; 88300; 88305; 88313; 88329; 88346; 88348; 88350

== ENCOUNTER 2025-05-25 09:01 | Outpatient (RCR) | payer OTHER, SELFPAY ==
[2025-05-25 09:28] VITALS: BMI 27.3
== END 2025-08-13 08:18 | disposition home or self-care (01) ==
LOC: ANHWOC 09:01
PROVIDERS: PCP Family Medicine; Visit Provider Family Medicine
DX: E11.621 Type 2 diabetes mellitus with foot ulcer (principal); L97.509 Non-pressure chronic ulcer of other part of unspecified foot with unspecified severity
CPT/HCPCS: 99213; G0463